=== PATIENT | female | born 1995 | race Caucasian/White ===

== ENCOUNTER 2017-06-17 16:38 | Emergency (ER) | payer OTHER ==
[2017-06-17] MEDS ORDERED: LORazepam 1 MG TAB PO ONE (17:03)
--- NOTE | 2017-06-17 17:07 | EDPHY ---
H & P Time Seen by Provider: 06/17/17 16:47 HPI/ROS: Chief complaint: Suicidal ideation, on mental health hold History of present illness: This is a 21-year-old female with a history of OCD who presents to the emergency department with police on a mental health hold for suicidal ideation. She has a plan of cutting herself. She states she suffers from OCD, she has suffered from this for a long time. She has had prior episodes suicidal ideation. She states symptoms have begun to worsen over the last few days if not weeks. She went to [facility] today where police were contacted and she was brought here. She denies homicidal ideation. She denies illness or injury. Review of systems: A 10 point review of systems was obtained and other than described above was negative (Theodore Guajardo) - Physical Exam Exam: General Appearance: Alert, nontoxic. Eyes: Pupils equal and round no pallor or injection. ENT, Mouth: Mucous membranes moist. Respiratory: There are no retractions, lungs are clear to auscultation. Cardiovascular: Regular rate and rhythm. Gastrointestinal: Abdomen is soft and non tender, no masses, bowel sounds normal. Neurological: Alert and oriented x4. Cranial nerves 2-12 grossly intact. Strength and sensation intact and symmetrical. Skin: Warm and dry, no rashes. Musculoskeletal: Neck is supple non tender. Extremities are symmetrical, full range of motion. Psychiatric: Patient is tearful but cooperative. (Theodore Guajardo) Constitutional: Initial Vital Signs Temperature (C) 36.8 C 06/17/17 17:15 Heart Rate 81 06/17/17 17:15 Respiratory Rate 22 H 06/17/17 17:15 Blood Pressure 167/90 H 06/17/17 17:15 O2 Sat (%) 99 06/17/17 17:15 O2 Delivery Mode Room Air Allergies/Adverse Reactions: No Known Allergies Allergy (Unverified 06/17/17 17:15) Home Medications: Medication Instructions Recorded PARoxetine HCL [Paxil] 40 mg PO DAILY 06/17/17 Quetiapine Fumarate [Seroquel] 50 mg PO TID 06/17/17 Medical Decision Making ED Course/Re-evaluation: The patient was evaluated and managed by the physician's acquisitions assistant. My cosignature indicates that I reviewed the chart and I agree with the findings and plan of care as documented. I am the secondary supervising physician. ( Josee Denny) Patient seen under the supervision of my secondary supervising physician Dr. Josee Denny. Patient presents to the emergency department on a mental health hold. She is medically evaluated and cleared for psychiatric evaluation. This is been performed and inpatient management has been arranged. She is awaiting transfer. Care of patient is turned over to my attending physician Dr. Mitul Cleemnte at end of shift. (Theodore Guajardo) Differential Diagnosis: Included but not limited to anxiety, depression, bipolar, OCD, borderline (Theodore Guajardo) Other Provider: 0100 care assumed from PAUL Guajardo pending placement. 0150 patient has been accepted to [facility] by Dr. Gu, I have completed the EMT A LA (Mitul Campbell) - Data Points Laboratory Results: Laboratory Results 06/17/17 16:57 06/17/17 16:57 06/17/17 06/17/17 06/17/17 17:20 16:57 16:57 WBC RBC Hgb Hct MCV MCH MCHC RDW Plt Count MPV Neut % (Auto) Lymph % (Auto) [place] % (Auto) Eos % (Auto) Baso % (Auto) Nucleat RBC Rel Count Absolute Neuts (auto) Absolute Lymphs (auto) Absolute Monos (auto) Absolute Eos (auto) Absolute Basos (auto) Absolute Nucleated RBC Immature Gran % Immature Gran # Sodium 142 mEq/L mEq/L (135-145) Potassium 4.3 mEq/L mEq/L (3.5-5.2) Chloride 103 mEq/L mEq/L (97-110) Carbon Dioxide 24 mEq/l mEq/l (22-31) Anion Gap 15 mEq/L mEq/L (8-16) BUN 13 mg/dL mg/dL (7-23) Creatinine 0.6 mg/dL mg/dL (0.6-1.0) Estimated GFR > 60 Glucose 94 mg/dL mg/dL (70-100) Calcium 10.3 mg/dL mg/dL (8.5-10.4) Beta HCG, Qual NEGATIVE Salicylates < 1.0 mg/dL L mg/dL (2.0-20.0) Urine Opiates Screen NEGATIVE (NEGATIVE) Acetaminophen < 10 mcg/mL L mcg/mL (10-30) Urine Barbiturates NEGATIVE (NEGATIVE) Ur Phencyclidine Scrn NEGATIVE (NEGATIVE) Ur Amphetamine Screen NEGATIVE (NEGATIVE) U Benzodiazepines Scrn NEGATIVE (NEGATIVE) Urine Cocaine Screen NEGATIVE (NEGATIVE) U Marijuana (THC) Screen NEGATIVE (NEGATIVE) Ethyl Alcohol < 10 mg/dL mg/dL (0-10) 06/17/17 16:57 WBC 9.18 10^3/uL 10^3/uL (3.80-9.50) RBC 5.07 10^6/uL 10^6/uL (4.18-5.33) Hgb 16.3 g/dL g/dL (12.6-16.3) Hct 45.0 % % (38.0-47.0) MCV 88.8 fL fL (81.5-99.8) MCH 32.1 pg pg (27.9-34.1) MCHC 36.2 g/dL g/dL (32.4-36.7) RDW 11.4 % L % (11.5-15.2) Plt Count 278 10^3/uL 10^3/uL (150-400) MPV 9.3 fL fL (8.7-11.7) Neut % (Auto) 76.1 % H % (39.3-74.2) Lymph % (Auto) 15.9 % % (15.0-45.0) [place] % (Auto) 6.1 % % (4.5-13.0) Eos % (Auto) 0.7 % % (0.6-7.6) Baso % (Auto) 0.8 % % (0.3-1.7) Nucleat RBC Rel Count 0.0 % % (0.0-0.2) Absolute Neuts (auto) 6.99 10^3/uL H 10^3/uL (1.70-6.50) Absolute Lymphs (auto) 1.46 10^3/uL 10^3/uL (1.00-3.00) Absolute Monos (auto) 0.56 10^3/uL 10^3/uL (0.30-0.80) Absolute Eos (auto) 0.06 10^3/uL 10^3/uL (0.03-0.40) Absolute Basos (auto) 0.07 10^3/uL 10^3/uL (0.02-0.10) Absolute Nucleated RBC 0.00 10^3/uL 10^3/uL (0-0.01) Immature Gran % 0.4 % % (0.0-1.1) Immature Gran # 0.04 10^3/uL 10^3/uL (0.00-0.10) Sodium Potassium Chloride Carbon Dioxide Anion Gap BUN Creatinine Estimated GFR Glucose Calcium Beta HCG, Qual Salicylates Urine Opiates Screen Acetaminophen Urine Barbiturates Ur Phencyclidine Scrn Ur Amphetamine Screen U Benzodiazepines Scrn Urine Cocaine Screen U Marijuana (THC) Screen Ethyl Alcohol Medications Given: Discontinued Medications Lorazepam (Ativan) 1 mg PO EDNOW ONE Stop: 06/17/17 17:04 Last Admin: 06/17/17 17:25 Dose: 1 mg Quetiapine Fumarate (Seroquel) 150 mg PO EDNOW ONE Stop: 06/17/17 22:35 Last Admin: 06/17/17 22:49 Dose: 150 mg Departure - Departure Disposition: Acute Care Hospital On license of [facility] Clinical Impression: Suicidal ideation Condition: Fair Referrals: Patient,NotPresent [Unknown] - As per Instructions
[2017-06-17 17:10] LABS: PLATELET COUNT 278 10^3/uL (150-400)
[2017-06-17] MEDS ORDERED: QUEtiapine FUMARATE 200 MG TAB PO ONE (22:34)
[2017-06-18 01:58] VITALS: BP 113/76
== END 2017-06-18 02:27 | disposition short-term general hospital (02) ==
LOC: EEVIPCON 16:38
DX: R45.851 Suicidal ideations (principal)
CPT/HCPCS: 80305; G0480